=== PATIENT | female | born 1985 | race Two or more races ===

== ENCOUNTER 2021-03-31 20:16 | Emergency (ER) | payer OTHER ==
[~2021-03-31] VITALS: Ht 154.9 cm; Wt 100.7 kg
[~2021-03-31 20:16] MED LIST: HYDR-2155 PO; PENI500T PO; PHEN100T82 PO; SULF1TAB24 PO
--- NOTE | 2021-03-31 20:34 | PHYS DOC ---
Past History Past Medical History: UTI, Other Past Surgical History: Smoking: Cigarettes Alcohol Use: None Drug Use: None General Adult EDM: Chief Complaint: MULTIPLE COMPLAINTS HPI: HPI: ".. I think I got a UTI.. It hurts to pee and it looks like it got blood in my urine... Has been going on several days.... I need to get some meds for my urinary tract infection... This been going on for a week... And I have not had time to follow-up with Dr. Sheth..." Patient is a 36 year old female who presents with above hx and complaints dysuria and lower abdomen pain and flank discomfort. Patient has had dysuria complaints for the past week. Patient denies any vaginal discharge. Patient denies any history immunosuppression. No recent travel. Patient is very impatient about her stay in the emergency room. Patient denies a any allergies to meds. Other than codeine. Patient does smoke tobacco. Review of Systems: Review of Systems: Constitutional: Denies fever or chills Eyes: Denies change in visual acuity HENT: Denies nasal congestion or sore throat Respiratory: Denies cough or shortness of breath Cardiovascular: Denies chest pain or edema GI: Complains of lower abdominal pain., nausea, vomiting, bloody stools or diarrhea . Pelvic exam declined : Complains of dysuria Musculoskeletal: Denies back pain or joint pain Integument: Denies rash Neurologic: Denies headache, focal weakness or sensory changes Endocrine: Denies polyuria or polydipsia Lymphatic: Denies swollen glands Psychiatric: Denies depression or anxiety Family History: Family History: Noncontributory to presentation Current Medications: Current Meds: See nursing for home meds Allergies: Allergies: Allergies Coded Allergies Type Severity Reaction Last Updated Verified codeine Adverse Reaction Intermediate nausea, upset stomach 12/17/14 Yes Physical Exam: PE: Constitutional: no acute distress, non-toxic appearance. [] HENT: Normocephalic, atraumatic, bilateral external ears normal, oropharynx moist, no oral exudates, nose normal. [] Eyes: PERRLA, EOMI, conjunctiva normal, no discharge. [] Neck: Normal range of motion, no tenderness, supple, no stridor. [] Cardiovascular:Heart rate regular rhythm, no murmur [] Lungs & Thorax: Bilateral breath sounds clear to auscultation [] Abdomen: Bowel sounds normal, soft, some suprapubic tenderness, no masses, no pulsatile masses. [] Mild lower flank tenderness bilaterally. Declines pelvic exam. scar. Skin: Warm, dry, no erythema, no rash. [] Back: No tenderness, no CVA tenderness. [] Extremities: No tenderness, no cyanosis, no clubbing, ROM intact, no edema. No psoas sign Neurologic: Alert and oriented X 3, normal motor function, normal sensory function, no focal deficits noted. [] Psychologic: Affect anxious, judgement normal, mood normal. Very impatient EKG: EKG: [] Radiology/Procedures: Radiology/Procedures: [] Heart Score: C/O Chest Pain: N/A Risk Factors: Risk Factors: DM, Current or recent (<one month) smoker, HTN, HLP, family his tory of CAD, obesity. Risk Scores: Score 0 - 3: 2.5% MACE over next 6 weeks - Discharge Home Score 4 - 6: 20.3% MACE over next 6 weeks - Admit for Clinical Observation Score 7 - 10: 72.7% MACE over next 6 weeks - Early Invasive Strategies Course & Med Decision Making: Course & Med Decision Making Pertinent Labs and Imaging studies reviewed. (See chart for details). Patient to push fluids. Patient push vitamin C drinks. Patient to use Tylenol and ibuprofen as needed for discomfort. Patient take Bactrim DS twice a day. Patient is to follow-up urine cultures. Encourage patient to keep follow-up with Dr. Klever Bain. Patient return if any concerns. Impression; 1. UTI 2. Tobacco use [] Dragon Disclaimer: Dragon Disclaimer: This electronic medical record was generated, in whole or in part, using a voice recognition dictation system. Departure Departure: Referrals: NILESH SHETH MD (PCP) Scripts Sulfamethoxazole/Trimethoprim (BACTRIM DS TABLET) 1 Each Tablet 1 TAB PO BID for UTI for 10 Days, #20 TAB 0 Refills Prov: ROMAN ROSALES MD 03/31/21 [place] Disclaimer This chart was dictated in whole or in part using Voice Recognition software in a busy, high-work load, and often noisy Emergency Department environment. It may contain unintended and wholly unrecognized errors or omissions. ROMAN ROSALES MD March 31, 2021 20:34
[2021-03-31 20:45] VITALS: BP 157/95
[2021-03-31 21:20] LABS: BARBITURATES NEG (NEG); BENZODIAZEPINES NEG (NEG); CANNABINOIDS NEG (NEG); COCAINE NEG (NEG); METHADONE NEG (NEG); OPIATES NEG (NEG); PHENCYCLIDINE NEG (NEG)
[2021-03-31 21:22] LABS: AMPHETAMINE/METHAMPHETAMINE POS (NEG)
[2021-03-31 21:31] LABS: BILIRUBIN,URINE SMALL (NEG); CLARITY,URINE CLOUDY; COLOR,URINE AMBER; GLUCOSE,URINE NEG (NEG)
[2021-03-31 21:32] LABS: BACTERIA,URINE MANY /HPF (0-FEW); NITRITE,URINE POS (NEG); RBC,URINE TNTC /HPF (0-2); SQUAMOUS EPITHELIAL CELL,UR FEW /LPF
[2021-03-31] MEDS ORDERED: SULF1TAB24 PO (22:07)
[2021-03-31] MEDS ORDERED: SMZ/TMP 800/160MG TABLET. PO ONE ×2 (22:11→22:15)
[2021-04-01] MEDS ORDERED: ONDA4TAB7 PO (13:50)
== END 2021-03-31 22:13 | disposition home or self-care (01) ==
LOC: ER 20:16
DX: N39.0 Urinary tract infection, site not specified (principal); F17.210 Nicotine dependence, cigarettes, uncomplicated; Z87.442 Personal history of urinary calculi; Z98.890 Other specified postprocedural states; Z88.5 Allergy status to narcotic agent
CPT/HCPCS: 36415; 80307; 81001; 81025; 87086; 99283

== ENCOUNTER 2021-04-01 11:19 | Emergency (ER) | payer OTHER ==
[~2021-04-01] VITALS: Ht 154.9 cm; Wt 100.7 kg
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
[2021-04-01] MEDS ORDERED: ONDANSETRON ODT 4 MG TAB.RAPDIS PO ONE (12:45)
[2021-04-01] MEDS ORDERED: diphenhydrAMINE HCL 25 MG CAPSULE PO ONE (12:45)
[2021-04-01] MEDS ORDERED: KETOROLAC 15 MG/ML VIAL. IM ONE (12:45)
[2021-04-01] MEDS ORDERED: ONDA4TAB7 PO (13:50)
[2021-04-01 13:52] VITALS: BP 132/65
== END 2021-04-01 14:00 | disposition home or self-care (01) ==
LOC: ER 11:19
DX: G43.009 Migraine without aura, not intractable, without status migrainosus (principal); F17.210 Nicotine dependence, cigarettes, uncomplicated; Z88.5 Allergy status to narcotic agent
CPT/HCPCS: 70450; 96372; 99284; J1885; Q0162

== ENCOUNTER 2022-02-02 18:35 | Emergency (ER) | payer OTHER ==
[~2022-02-02] VITALS: Ht 157.5 cm; Wt 110.3 kg
[~2022-02-02 18:35] MED LIST changes: +ONDA4TAB7 PO
[2022-02-02] MEDS ORDERED: IBUPROFEN 600 MG TABLET. PO ONE ×2 (20:15→20:30)
[2022-02-02] MEDS ORDERED: ACETAMINOPHEN 500 MG TABLET PO ONE (20:15)
[2022-02-02] MEDS ORDERED: diphenhydrAMINE HCL 25 MG CAPSULE PO ONE (20:30)
[2022-02-02 20:37] VITALS: BP 143/83
[2022-02-02] MEDS ORDERED: ONDA8TAB15 PO (20:39)
[2022-02-02] MEDS ORDERED: LEVO500T9 PO (20:39)
--- NOTE | 2022-02-02 20:41 | PHYS DOC ---
Past History Past Medical History: No Pertinent History Past Surgical History: No Surgical History Smoking: Cigarettes Alcohol Use: None Drug Use: None Adult General Chief Complaint Chief Complaint: MULTIPLE COMPLAINTS HPI HPI Patient is a 36-year-old female who presents with a chief complaint of productive cough, chills and body aches. States her was diagnosed with COVID yesterday. Review of Systems Review of Systems Review of systems otherwise unremarkable except noted in HPI Current Medications Current Medications Current Medications Medications (Trade) Dose Ordered Sig/Melissa Start Time Stop Time Status Last Admin Dose Admin Acetaminophen (Tylenol) 1,000 mg 1X ONCE 02/02/22 20:15 02/02/22 20:16 UNV Ibuprofen (Motrin) 800 mg 1X ONCE 02/02/22 20:15 02/02/22 20:16 UNV Allergies Allergies Allergies Coded Allergies Type Severity Reaction Last Updated Verified codeine Adverse Reaction Intermediate nausea, upset stomach 12/17/14 Yes Physical Exam Physical Exam Constitutional: Well developed, well nourished, no acute distress, non-toxic appearance. [] HENT: Normocephalic, atraumatic, oropharynx moist, no oral exudates, nose normal. [] Eyes: conjunctiva normal, no discharge. [] Neck: Normal range of motion, no tenderness, supple, no stridor. [] Cardiovascular: Sinus tachycardia Lungs & Thorax: Bilateral breath sounds with congestion, no tachypnea or increased work of breathing Abdomen: soft, no tenderness, no masses, no pulsatile masses. [] Skin: Warm, dry, no erythema, no rash. [] Back: No tenderness, no CVA tenderness. [] Extremities: No tenderness, no cyanosis, no clubbing, ROM intact, no edema. [] Neurologic: Alert and oriented X 3, no focal deficits noted. [] Psychologic: Affect normal, judgement normal, mood normal. [] EKG EKG [] Radiology/Procedures Radiology/Procedures [] Heart Score C/O Chest Pain: No Risk Factors: Risk Factors: DM, Current or recent (<one month) smoker, HTN, HLP, family history of CAD, obesity. Risk Scores: Risk Factors: DM, Current or recent (<one month) smoker, HTN, HLP, family history of CAD, obesity. Course & Med Decision Making Course & Med Decision Making Patient is a 36-year-old female who presents with symptoms of Covid, and has been diagnosed yesterday with Covid Vital signs notable for tachycardia and fever. Physical exam noted above. Patient given medications for symptom management. Chest x-ray with findings suggestive of pneumonia, and most likely Covid was started on antibiotics. Given COVID education and instruction for quarantine. Discussed symptom management at home with antibiotics and antiemetics. Advised on diet and fluid intake. Advised to call primary care physician in the morning to update on ED visit. Gave strict return precautions to the ED. Patient grateful, verbalized understanding and agreed with plan of discharge. Dragon Disclaimer Dragon Disclaimer This electronic medical record was generated, in whole or in part, using a voice recognition dictation system. Departure Departure: Impression: Primary Impression: Viral syndrome Additional Impression: Pneumonia Disposition: HOME / SELF CARE / HOMELESS Condition: STABLE Referrals: NILESH DODSON MD (PCP) Patient Instructions: Viral Syndrome Additional Instructions: Thank you for coming into the emergency department tonight and allowing us to take care of you. Please read the attached information carefully to go over things we discussed. Please start a regimen of 1000 mg of Tylenol every 8 hours, 800 mg of ibuprofen every 8 hours, 50 mg of Benadryl every 6 hours and [id number] dextromethorphan for cough. Please take these daily over the next couple of days to control symptoms. Please use your nausea medicine as prescribed to be sure you are able to take in small amounts of food and plenty of fluid as we discussed. Please call your primary care physician in the morning update on your ED visit and set up a follow-up. Please come back with new or concerning symptoms as we discussed COVID-19. It is an infection caused by a new type of coronavirus. COVID-19 will cause cold-like or mild flu symptoms in most. It can cause more severe symptoms like problems breathing in some. There is no treatment for COVID-19. The body will clear the infection over time. Self-care will help to ease discomfort. Steps to Take: Self-Care Rest as needed. Healthy habits may help you feel better. Steps include: Choose healthy foods including fruits and vegetables. Drink water throughout the day. Get plenty of sleep each night. If you smoke, try to quit. It may ease breathing. Avoid alcohol. Keep Others Healthy The virus can spread to others. Droplets are released every time you sneeze or cough. The droplets can get into the mouth, nose, or eyes of people near you and lead to infection. To lower the chances of spreading COVID-19 to others: Stay at home until your doctor has said it is safe to leave. If you tested posi tive this will mean staying isolated until both of the following are true: At least 7 days have passed since the start of illness. You are free of fever for at least 72 hours without the use of medicine. However the CDC guidelines for quarantine changed daily and you should check the website to see what the current quarantine recommendations are During this time: - Avoid public areas, events, or transportation. Do not return to work or school until your doctor has said it is safe to do so. - Call ahead if you need to go to a medical center. Let them know you may have COVID-19. It will help them guide you where to go. They may also ask you to wear a facemask when you come to the office. - If you call for emergency medical services, let them know you may have COVID- 19. While at home: - Try to avoid close contact with others. Stay about 6 feet away. - If possible, spend most of your time in a separate room from others. - Use a face mask if you will be in close contact with others such as sharing a room or vehicle. - Have someone wipe down common surfaces in the home. Use household leather scrubber every day on areas like doorknobs, counters, or sinks. - Cough or sneeze into a tissue. Throw the tissue away right after use. If a tissue is not available, cough or sneeze into your elbow. - Wash your hands often. Wash them after sneezing or coughing. Use soap and water and wash for at least 20 seconds. Alcohol based hand core cleaner can be used if soap and water is not available. - Do not prepare food for others. Avoid sharing personal items like forks, spoons, or toothbrushes. - Avoid close contact with pets while you are sick. There is no evidence of the virus passing to pets. This is a safety step until more is known about this virus. Isolation can be frustrating. Social interaction can help. Keep in touch with friends and family through phone and tech options. You can still interact with others in your home, just keep a safe distance of about 6 feet. Follow-up: Your doctors office will check in with you to see if there are any changes in your health. You may be asked to keep track of symptoms to share with them. They will also let you know when you are clear to be in public again. Problems to Look Out For: Contact your doctor if your recovery is not going as you expect. Get emergency care if you have problems such as: - Trouble breathing - Nonstop chest pain or pressure - Changes in awareness, confusion, or problems waking - Lips or face have bluish color - Worsening of symptoms If you think you have an emergency, call for emergency medical services right away. As taken from [facility] Scripts Ondansetron (ONDANSETRON ODT) 8 Mg Tab.rapdis 8 MG PO TID for nausea for 7 Days, #21 TAB Prov: CORRINA UMANA MD 02/02/22 Levofloxacin (LEVOFLOXACIN) 500 Mg Tablet 1 TAB PO DAILY for PNA for 4 Days, #4 TAB Prov: CORRINA UMANA MD 02/02/22 Problem Qualifiers CORRINA UMANA MD Feb 02, 2022 20:41
[2022-02-02] MEDS ORDERED: ONDANSETRON ODT 4 MG TAB.RAPDIS PO ONE (20:45)
[2022-02-02] MEDS ORDERED: levoFLOXacin 500 MG TABLET PO ONE (20:45)
--- NOTE | 2022-02-02 21:57 | RAD ---
Exam: Chest 2 views INDICATION: Shortness of breath, cough TECHNIQUE: Frontal and lateral views the chest Comparisons: None FINDINGS: The cardiomediastinal silhouette and pulmonary vessels are within normal limits. The lung and pleural spaces are clear. IMPRESSION: No acute cardiopulmonary process. Electronically signed by: Isaac Reynolds MD (02/02/2022 9:54 PM) LINDA
== END 2022-02-02 20:55 | disposition home or self-care (01) ==
LOC: ER 18:35
DX: J18.9 Pneumonia, unspecified organism (principal); B34.9 Viral infection, unspecified; F17.210 Nicotine dependence, cigarettes, uncomplicated; Z88.5 Allergy status to narcotic agent
CPT/HCPCS: 71046; 99284; Q0162; Q0163